=== PATIENT | female | born 1995 | race Caucasian/White ===

== ENCOUNTER 2016-09-10 10:27 | Emergency (ER) | payer OTHER ==
[~2016-09-10] VITALS: Ht 162.6 cm; Wt 46.8 kg
[2016-09-10] MEDS ORDERED: ALBU8HFA IH (10:29)
[2016-09-10] MEDS ORDERED: DEPOP150I IM (10:29)
[2016-09-10] MEDS ORDERED: DEXAMETHASONE SOD PHOS 4 MG/ML VIAL IM ONE (11:15)
[2016-09-10 11:33] VITALS: BP 110/69
== END 2016-09-10 12:01 | disposition home or self-care (01) ==
LOC: EMS 10:29
DX: L23.9 Allergic contact dermatitis, unspecified cause (principal); F17.200 Nicotine dependence, unspecified, uncomplicated
CPT/HCPCS: 96372; 99283; J1100

== ENCOUNTER 2016-10-31 16:09 | Emergency (ER) | payer OTHER ==
[~2016-10-31] VITALS: Ht 162.6 cm; Wt 46.8 kg
[~2016-10-31 16:09] MED LIST: ALBU8HFA IH; DEPOP150I IM
[2016-10-31] MEDS ORDERED: IPRATROPIUM BROMIDE 0.5 MG/2.5 ML NEB SOLUTION NEB ONE (17:00)
[2016-10-31] MEDS ORDERED: ALBUTEROL SULFATE 5 MG/ML 20 ML NEB SOLN [BULK] NEB ONE (17:00)
[2016-10-31] MEDS ORDERED: DEXAMETHASONE SOD PHOS 4 MG/ML 5 ML VIAL IM ONE (17:00)
[2016-10-31 18:48] VITALS: BP 122/64
== END 2016-10-31 18:45 | disposition home or self-care (01) ==
LOC: EMS 16:09
DX: J45.909 Unspecified asthma, uncomplicated (principal); F17.210 Nicotine dependence, cigarettes, uncomplicated
CPT/HCPCS: 94644; 96372; 99285; 99407; J1100; J7611